=== PATIENT | female | born 1965 | race Caucasian/White ===

== ENCOUNTER 2017-09-14 16:58 | Emergency (ER) | payer MEDICARE, OTHER ==
[~2017-09-14] VITALS: Ht 160 cm; Wt 56.8 kg
[~2017-09-14 16:58] MED LIST: NEOM1OIN8 TOP
[2017-09-14 17:22] VITALS: BP 155/100
== END 2017-09-14 18:06 ==
LOC: ER 16:59
DX: Z02.89 Encounter for other administrative examinations (principal); F12.10 Cannabis abuse, uncomplicated; Z88.5 Allergy status to narcotic agent; Z59.0 Homelessness
CPT/HCPCS: 99284

== ENCOUNTER 2018-02-17 23:01 | Emergency (ER) | payer MEDICARE, OTHER ==
[~2018-02-17] VITALS: Ht 162.6 cm; Wt 68.8 kg
[2018-02-18 02:11] VITALS: BP 136/88
== END 2018-02-18 02:13 | disposition home or self-care (01) ==
LOC: ER 23:02
DX: M54.2 Cervicalgia (principal); R42 Dizziness and giddiness; R47.81 Slurred speech; F12.90 Cannabis use, unspecified, uncomplicated; Z90.89 Acquired absence of other organs; Z88.5 Allergy status to narcotic agent; Z79.899 Other long term (current) drug therapy; Z59.0 Homelessness
CPT/HCPCS: 99281

== ENCOUNTER 2020-07-26 09:00 | Emergency (ER) | payer MEDICARE ==
[~2020-07-26] VITALS: Ht 162.6 cm; Wt 62.1 kg
[2020-07-26] MEDS ORDERED: sulfamethoxazole/trimethoprim DS (800/160mg) tablet PO ONE (12:00)
[2020-07-26] MEDS ORDERED: SULF1TAB49 PO (12:20)
[2020-07-26 12:34] VITALS: BP 116/81
== END 2020-07-26 12:30 | disposition home or self-care (01) ==
LOC: ER 09:01
DX: S01.01XD Laceration without foreign body of scalp, subsequent encounter (principal); H66.92 Otitis media, unspecified, left ear; F31.9 Bipolar disorder, unspecified; F17.200 Nicotine dependence, unspecified, uncomplicated; F12.90 Cannabis use, unspecified, uncomplicated; Z48.02 Encounter for removal of sutures; Z90.89 Acquired absence of other organs; Z98.890 Other specified postprocedural states; Z59.0 Homelessness; Z88.5 Allergy status to narcotic agent; Z88.8 Allergy status to other drugs, medicaments and biological substances; Z79.2 Long term (current) use of antibiotics; X58.XXXD Exposure to other specified factors, subsequent encounter
CPT/HCPCS: 99283

== ENCOUNTER 2022-04-23 13:24 | Emergency (ER) | payer MEDICARE ==
[~2022-04-23] VITALS: Ht 162.6 cm; Wt 54.5 kg
[2022-04-23 13:29] VITALS: BP 139/100
[2022-04-23] MEDS ORDERED: amox tr/potassium clavulanate 875/125mg TAB PO ONE (13:50)
[2022-04-23] MEDS ORDERED: AMOX-580 PO (14:37)
== END 2022-04-23 14:49 | disposition home or self-care (01) ==
LOC: ER 13:25
DX: J02.9 Acute pharyngitis, unspecified (principal); F31.9 Bipolar disorder, unspecified; F12.90 Cannabis use, unspecified, uncomplicated; Z88.8 Allergy status to other drugs, medicaments and biological substances; Z88.5 Allergy status to narcotic agent; Z98.890 Other specified postprocedural states; Z59.00 Homelessness unspecified
CPT/HCPCS: 73590; 99283

== ENCOUNTER 2023-07-31 14:23 | Emergency (ER) | payer MEDICARE ==
[~2023-07-31] VITALS: Ht 162.6 cm; Wt 58.0 kg
[~2023-07-31 14:23] MED LIST changes: -NEOM1OIN8 TOP; +NICO-687 TOP
[2023-07-31 14:45] VITALS: TEMP 98.2
[2023-07-31 17:25] LABS: BASOPHILS # (AUTO) 0.1 X10'3 (0-0.2); BASOPHILS % (AUTO) 0.5 % (0-1); EOSINOPHILS % (AUTO) 0.1 % (0-6); HEMATOCRIT 31.9 % (35.0-45.0); HEMOGLOBIN 10.7 g/dl (12.0-16.0); LYMPHOCYTES # (AUTO) 2.8 X10'3 (1.1-4.8); MEAN CORPUSCULAR HEMOGLOBIN 30.6 PG (27.0-31.0); MEAN CORPUSCULAR HGB CONC 33.5 g/dL (33.0-36.5); MEAN CORPUSCULAR VOLUME 91.6 FL (78-98); MEAN PLATELET VOLUME 8.8 FL (7.4-10.4); MONOCYTES # (AUTO) 0.9 X10'3 (0-0.9); MONOCYTES % (AUTO) 5.6 % (2-12); NEUTROPHILS # (AUTO) 12.5 X10'3 (1.8-7.7); NEUTROPHILS % (AUTO) 76.8 % (42-75); PLATELET COUNT 429 X10'3 (140-440); RED BLOOD COUNT 3.49 X10'6 (4.20-5.60); RED CELL DISTRIBUTION WIDTH 14.4 % (11.5-14.5); WHITE BLOOD COUNT 16.4 X10'3 (4.5-11.0)
[2023-07-31 17:28] LABS: ALBUMIN 2.8 G/DL (3.4-5.0); ANION GAP 8 (8-16); BLOOD UREA NITROGEN 9 MG/DL (7-18); BUN/CREATININE RATIO 12.3 (10.0-20.0); CALCIUM 8.5 MG/DL (8.5-10.1); CHLORIDE 98 MMOL/L (99-107); CREATININE 0.73 MG/DL (0.40-0.90); GLUCOSE 96 MG/DL (70-104); POTASSIUM 3.6 MMOL/L (3.5-5.1); SODIUM 134 MMOL/L (135-145); TOTAL CARBON DIOXIDE 28.4 MMOL/L (24-32); eCRCL 73 ML/MIN; eGFR 82 ML/MIN
[2023-07-31] MEDS ORDERED: AZIT-21 PO (18:08)
[2023-07-31 18:38] VITALS: BP 104/67; PULSE 92; RESP 16; O2SAT 100
== END 2023-07-31 18:44 | disposition home or self-care (01) ==
LOC: ER 14:24
DX: J20.9 Acute bronchitis, unspecified (principal); R07.81 Pleurodynia; F32.A Depression, unspecified; F12.90 Cannabis use, unspecified, uncomplicated; Z98.890 Other specified postprocedural states; Z59.00 Homelessness unspecified; Z88.5 Allergy status to narcotic agent; Z88.8 Allergy status to other drugs, medicaments and biological substances; Z79.899 Other long term (current) drug therapy
CPT/HCPCS: 36415; 71045; 80048; 85025; 93005; 99285

== ENCOUNTER 2025-01-23 06:26 | Inpatient (IN) | payer OTHER, MEDICARE, MEDICAID ==
[~2025-01-23] VITALS: Ht 162.6 cm; Wt 54.5 kg
--- NOTE | 2025-01-23 07:31 | Physician Documentation ---
History of Present Illness ~ Chief Complaint: Vomiting w/diarrhea Stated Complaint: VOMITING Time Seen by MD: 07:01 Primary Medical Doctor: ELVA GRAF [facility] This is a 59-year-old female who came in for evaluation of uncontrollable nausea, vomiting, diarrhea, and uncontrollable urination with a purulent valerio urine for the last three days. No obvious trigger provocation. No palliating or aggravating factors. She states that she had to wash her clothes multiple times down by the canal because she kept swelling her closed. This never happened in the past. Did not attempt to treat it. States that she has not been able to keep down any food or fluids since yesterday. Also reports right-sided chest pain that she describes as I have a ball over here. No palliating or aggravating factors for the chest pain. Did not attempt to treat it. Denies any concern for tobacco, alcohol or illicit substances use Medication Reconciliation Allergies: Coded Allergies: codeine (Unverified Allergy, Severe, 01/23/25) diphenhydramine HCl (Unverified Allergy, Unknown, 01/23/25) Scheduled Nicotine 21 MG Patch* (Habitrol 21 MG Patch*), 1 PATCH TOP DAILY Past Medical History Past Medical History: Vertigo, Bipolar, Depression Past Surgical History: , tonsillectomy Patient History: FH: heart disease Alcohol Use: None Drug Use: marijuana Lives In: Homeless Review of Systems ROS 10 point review of systems was performed and unless noted above in HPI is negative for acute process/complaint. Physical Exam Vital Signs: Temperature: 97.2, Source: Temporal, Heart Rate: 98, Respiratory Rate: 19, BP: 124/, Pulse Oximetry: 98, Weight: 54.500 Physical Exam GENERAL: Awake, alert, oriented, GCS 15, no apparent distress, non-toxic appearing, answers questions, follows commands appropriately. Examined in bed 11. After patient had undergone decontamination shower. Initially presented completely covered in feces and urine. HEENT: Atraumatic, normocephalic, pupils equal, extraocular muscles intact, sclerae anicteric, mucus membranes moist, oropharynx is clear, no stridor. NECK: supple, full active range of motion, trachea midline, no thyromegaly, no lymphadenopathy, no JVD. CARDIOVASCULAR: regular rate/rhythm, no murmurs/gallops/rubs, Pulses are 2+ in a ll extremities and symmetric. Capillary refill less than 2 seconds. PULMONARY: Nonlabored, good air movement ,no respiratory distress, speaking in full sentences, clear to auscultation bilaterally, no wheezing, no ronchi, no rales, no accessory muscle use. GASTROINTESTINAL: Soft, non-tender, non-distended, normal active bowel sounds, no organomegaly, no pulsatile masses, no CVA tenderness. NEUROLOGIC: Lucid with normal mental status. Normal facial symmetry. Moves all extremities symmetrically and with purpose. No truncal ataxia. Speech is fluid without evidence of dysarthria or aphasia, no focal deficits appreciated. MUSCULOSKELETAL: There is full range of motion of all extremities. There is no joint pain or joint swelling or joint erythema. There is no muscle pain or tenderness or swelling. EXTREMITIES: warm, well-perfused, no cyanosis, no clubbing, no edema, no acute deformities. Skin: warm, dry, no rashes or lesions, no jaundice, no petechiae orpurpura. No ecchymosis. PSYCHIATRIC: Normal affect, normal insight, normal concentration. Focused exam: [] No guarding or rebound Progress Results/Orders Results/Orders Orders - BARRY ANG DO Culture Blood (01/23/25 07:27) Chest,Single View (01/23/25 07:27) Monitor (01/23/25 07:27) Saline Lock (01/23/25 07:27) Ct Abdomen Pelvis (01/23/25 10:56) Normal Saline (01/23/25 11:00) Rocephin 2 Gm In 50ml D5w (01/23/25 11:00) Metronidazole-Flagyl 500mg/Ns (Flagyl 50 (01/23/25 10:56) Completed Orders - BARRY ANG DO Electrocardiogram (01/23/25 07:27) Cbc/Diff (01/23/25 07:27) ESR (01/23/25 07:27) Lipase (01/23/25 07:27) C-Reactive Protein (01/23/25 07:27) PHOS (01/23/25 07:27) Chest,Single View (01/23/25 07:27) MG (01/23/25 07:27) Normal Saline 1000ml (0.9% Sodium Chlori (8/11/25 07:30) CMP (01/23/25 07:27) Hs Troponin I W Calculations (01/23/25 07:27) Hs Troponin I W Calculations (01/23/25 09:27) Lacticsepsis (01/23/25 07:27) Ondansetron Inj. (Zofran 4mg/2ml Vial) (01/23/25 07:30) Magnesium Sulf-Water 2g/50ml (Magnesium (01/23/25 09:00) Lactic,2hr (01/23/25 09:05) Ua W/Microscopic, Cult If Ind (01/23/25 10:00) Medications Received in ER Medications (Trade) Dose Ordered Sig/Denzel Route PRN Reason Start Time Stop Time Status Last Admin Dose Admin (0.9% sodium chloride (NS) 1000ml IV soln) 1,000 ml ONCE ONCE IVB 01/23/25 07:30 01/23/25 07:31 DC 01/23/25 07:38 1,000 ML (Zofran 4mg/2ml vial) 8 mg ONCE ONCE IV 01/23/25 07:30 01/23/25 07:31 DC 01/23/25 07:38 8 MG Magnesium Sulfate 50 ml @ 100 mls/hr ONCE ONCE IV 01/23/25 09:00 01/23/25 09:29 DC 01/23/25 10:36 100 MLS/HR Vital Signs 01/23/25 01/23/25 01/23/25 06:43 07:45 07:48 Temp 97.2 97.8 Pulse 98 83 Resp 19 14 14 B/P (MAP) 124/ 115/85 (95) Pulse Ox 98 96 Laboratory Tests Test 01/23/25 07:34 01/23/25 09:41 01/23/25 10:00 White Blood Count 15.0 H Red Blood Count 4.48 Hemoglobin 14.2 Hematocrit 42.2 Mean Corpuscular Volume 94.1 Mean Corpuscular Hemoglobin 31.8 H Mean Corpuscular Hemoglobin Concent 33.8 Red Cell Distribution Width 13.3 Platelet Count 452 H Mean Platelet Volume 9.0 Neutrophils (%) (Auto) 74.4 Lymphocytes (%) (Auto) 19.4 L Monocytes (%) (Auto) 5.7 Eosinophils (%) (Auto) 0.1 Basophils (%) (Auto) 0.4 Neutrophils # (Auto) 11.1 H Lymphocytes # (Auto) 2.9 Monocytes # (Auto) 0.8 Eosinophils # (Auto) 0.0 Basophils # (Auto) 0.1 CBC Comment Erythrocyte Sedimentation Rate 49 H Sodium Level 133 L Potassium Level 3.3 L Chloride Level 97 L Carbon Dioxide Level 22.6 L Anion Gap 13 Blood Urea Nitrogen 31 H Creatinine 2.00 H Estimated GFR/1.73 m2 26 BUN/Creatinine Ratio 15.5 Glucose Level 115 H Lactic Acid Level 2.2 H 2.5 H Calcium Level 8.7 Phosphorus Level 5.2 H Magnesium Level 1.7 Total Bilirubin 0.3 Aspartate Amino Transf (AST/SGOT) 11 Alanine Aminotransferase (ALT/SGPT) 19 Alkaline Phosphatase 121 H Troponin I High Sensitivity 4 5 C-Reactive Protein 5.14 H Total Protein 9.0 H Albumin 3.7 Globulin 5.3 H Albumin/Globulin Ratio 0.7 L Lipase 15 L Chemistry Comments Troponin I High Sens Percent Delta 25 Troponin I Hi Sens Absolute Change 1 Urine Specimen Description Ba cath Urine Color Yellow Urine Clarity Slightly cloudy Urine pH 6.0 Urine Specific [place] >=1.030 Urine Protein 30 H Urine Glucose (UA) Negative Urine Ketones Negative Urine Occult Blood Trace-intact Urine Nitrite Negative Urine Bilirubin Negative Urine Urobilinogen 0.2 Urine Leukocyte Esterase Negative Urine RBC 3-10 Urine WBC 0-4 Urine Squamous Epithelial Cells Many Urine Transitional Epithelial Cells Few Urine Renal Cells Few Urine Bacteria 1+ Urine Hyaline Casts 5-10 Urine Fine Granular Casts 0-3 Urine Culture Indicated Not ind Volume Urine Centrifuged 10 ml Urine Comment Microbiology Date/Time Source Procedure Growth Status 01/23/25 07:34 Blood Arm Right Blood Culture - Preliminary NEGATIVE (LESS THAN 24 HOURS) Resulted EKG/XRAY/CT/US/VASC/MRI EKG : Additional Comment EKG was obtained and interpreted by myself shows sinus rhythm of 86, normal NC interval, narrow QRS, prolonged QT, normal axis, no STEMI. ST depressions in the inferior leads. Medical Decision Making Findings Facility Status: ED Holds, [facility] process The plan was discussed with the patient, who demonstrates clear understanding of the plan and is in agreement with the plan unless otherwise noted in the chart. All questions have been answered, all concerns were addressed unless otherwise documented. I was available throughout their ED stay for frequent reassessment and questions. Differential Diagnoses (considered and possible or likely): [Viral gastroenteritis, bacterial gastroenteritis, bacterial colitis, diverticulitis less likely, urinary tract infection, pyelitis, pyelonephritis, sepsis, dehydration, electrolyte derangement, with a respect to chest pain Differential diagnosis considered includes chest wall pain, pleurisy, pneumonia, pulmonary embolus, GERD, esophagitis, gastritis, anxiety, stress reaction, costochondritis, acute coronary syndrome, aortic dissection, pericarditis, myocarditis, or pneumothorax.] ??Differential Diagnoses (considered and unlikely, not requiring evaluation currently): [Unlikely acute intra-abdominal process requiring surgical intervention] MDM Data Please see [facility] for the following: Independent Historians and external Records Review. Historian: [Patient] Independent Historians: ?[Record review] Medication Management: [Reviewed medication list] Social History and determinants: [Reviewed] Please see the body of the note for the following: Any independent interpretations of ECG, imaging studies. All vitals signs/haemodynamics, ordered tests were independently reviewed and interpreted by myself. Nursing triage complaint and vitals reviewed, additional nursing notes were reviewed as available and I agree unless otherwise noted or documented in contradiction in the chart Vital Signs: Independently reviewed Labs: Independently interpreted Imaging: Independently interpreted Old Medical Records: Independently reviewed, see [facility] for relevant summary and information Pulse Oximetry: [93% ] interpreted as [normal on room air] by me [Hot Mill Operator: [Regular Rate, Regular rhythm, no ectopy, NSR] reviewed and interpreted by me] Additionally notably showing: [Hemodynamics reviewed. The patient is not febrile but tachycardic. Responded well to fluids. Laboratory studies showed leukocytosis, elevated ESR, elevated CRP, normal lipase, normal troponin, elevated lactic acid that did not improve despite of fluid administration. UA is concentrated, nondiagnostic for UTI. Chest x-ray shows no acute disease] Tests considered but not ordered include: [Initially did not consider advanced imaging of the abdomen, however given rising lactic acid despite of fluid admin istration we will obtain imaging] Social Determinants of Health Impact: Patient was evaluated in [facility] [employer] [place] to healthcare due to below par ratio of patient to medical providers. [] Comorbid Conditions Impacting Present Evaluation and Care/Treatment: [None reported by the patient] Management Discussions with other Healthcare Providers: [Hospitalist regarding admission] Treatment and Disposition Medication Management (Given or considered): [Fluids, magnesium for prolonged QT]. See EMR for details Consideration for Hospitalization/Escalation/Deescalation of Care: Admission for observation has been considered, and appears to be necessary given the patient's presentation, need for rectal tube, continues diarrhea, lactic acidosis and meeting sepsis criteria. However, there is no clear infectious etiology at this time therefore this is sepsis of unknown etiology. ?ED Course:?[No significant clinical improvement] ?Shared decision making:?[] Code status:?FULL Please see the full Electronic Medical Record for full details of nursing documentation, medications list, other records of complete past medical history and conditions, vital signs, laboratory studies, and any radiologic study interpretations by radiologists. Portions of this note were completed using [employer] dictation software and as a result there may exist minor errors in spelling. I have reviewed elements of past family and social history and agree as included in note. Departure Disposition: 09 ADMITTED INPATIENT Admitted to Inpatient Unit: to hospitalist Impression: Primary Impression: Sepsis, unspecified organism Additional Impressions: Hyponatremia Hypokalemia Diarrhea Acute kidney injury Lactic acidosis Condition: Fair Referrals: NO PRIMARY CARE PROVIDER (PCP) Signature Scribe Signature: No scribe Attestation: This note accurately reflects clinical decisions, work performed by myself, DO ASHIA Rush NICHOLAS M DO Jan 23, 2025 07:31
[2025-01-23] MEDS: normal saline 1000ML IV soln IVB ONE ×2 (07:38→12:21)
[2025-01-23] MEDS: ondansetron/PF 4mg/2ml inj IV ONE (07:38)
[2025-01-23 07:46] LABS: MEAN PLATELET VOLUME 9.0 FL (7.4-10.4); RED CELL DISTRIBUTION WIDTH 13.3 % (11.5-14.5)
--- NOTE | 2025-01-23 07:48 | ELECTROCARDIOGRAPH REPORT ---
[facility] Test Date: 2025-01-23 Test Time: 07:46:52 Pat Name: MEERA SIDDIQI Department: [facility]- Patient ID: [facility]-[id number] Room: Gender: F Engagement Mgr: : 1965 Requested By: BARRY ANG Order Number: [id number] Reading MD: Measurements Intervals Foley Rate: 86 P: 82 GA: 120 QRS: 80 QRSD: 85 T: -87 QT: 455 QTc: 545 Interpretive Statements Sinus rhythm Abnormal R-wave progression, early transition Borderline repolarization abnormality Prolonged QT interval Baseline wander in lead(s) III,aVL,aVF Please click the below link to view image of tracing.
[2025-01-23 08:14] LABS: CREATININE 2.00 MG/DL (0.40-0.90); PHOSPHORUS 5.2 MG/DL (2.3-4.5); TOTAL CARBON DIOXIDE 22.6 MMOL/L (24-32); eCRCL 26 ML/MIN; eGFR 26 ML/MIN
--- NOTE | 2025-01-23 08:20 | RADIOLOGY REPORT ---
CHEST RADIOGRAPH Indication: Right-sided chest pain Technique: Single frontal view of the chest was obtained Comparison: DI CHEST,SINGLE VIEW on DOS: 07/31/23 FINDINGS: Lines and Tubes: None Lungs: No focal consolidation. Pleura: No effusion. No pneumothorax. Cardiomediastinal contours: Unremarkable Bones: No acute osseous abnormality. IMPRESSION: 1. No acute cardiopulmonary disease.
[2025-01-23 10:16] LABS: LEUKOCYTE ESTERASE ,URINE NEGATIVE (Neg); NITRITES, URINE NEGATIVE (Neg); OCCULT BLOOD,URINE TRACE-INTACT (Neg)
[2025-01-23 10:19] LABS: UA COLLECTION TYPE FOLEY CATH
[2025-01-23 10:22] LABS: FINE GRANULAR CAST 0-3 /LPF (NEGATIVE)
[2025-01-23 10:23] LABS: RENAL CELLS, URINE FEW /HPF; SQUAMOUS EPITHELIAL CELL,UR MANY /LPF (FEW)
[2025-01-23] MEDS: magnesium sulf-water 2g/50mL 50 ML IV ONE (10:36)
[2025-01-23] MEDS ORDERED: CefTRIAXone 2gm/NS 100ml IVPB 50 ML IV ONE (11:00)
[2025-01-23] MEDS ORDERED: iohexol 300mg/ml 100ml inj. ONE (11:33)
[2025-01-23] MEDS ORDERED: magnesium sulf-water 2g/50mL 50 ML IV PRN (12:10)
[2025-01-23] MEDS ORDERED: potassium Cl 40MEQ/1/2NS 520ml 520 ML IV PRN (12:10)
[2025-01-23] MEDS ORDERED: ipratropium/albuterol 3ml nebule NEB PRN (12:10)
[2025-01-23] MEDS ORDERED: HYDROmorphone inj. 0.5 MG/0.5 ML DISP.SYRIN IV PRN (12:10)
[2025-01-23] MEDS ORDERED: magnesium hydroxide 30ml (MOM) UD suspension PO PRN (12:10)
[2025-01-23] MEDS ORDERED: magnesium sulf-water 4G/100mL 100 ML IV PRN (12:10)
[2025-01-23] MEDS ORDERED: potassium Cl 20 mEq SR tablet PO PRN (12:10)
[2025-01-23] MEDS ORDERED: mag hydrox/Alum hydrox/simeth 30ml oral suspension PO PRN (12:10)
[2025-01-23] MEDS ORDERED: HYDROmorphone/PF 0.2 MG/ML SYRINGE IV PRN (12:10)
--- NOTE | 2025-01-23 12:10 | RADIOLOGY REPORT ---
CT of the abdomen and pelvis with contrast INDICATION: profuse diarrhea, abd pain Comparison: 07/20/2023 TECHNIQUE: Following IV administration 100 mL omnipaque 300 Serial axial images were performed throug h the abdomen and pelvis and then reformatted in the sagittal and coronal plane. All CT scans at this medical facility are performed using dose modulation techniques as appropriate to a performed exam i ncluding the following: Automated exposure control was utilized; adjustment of the MA and/or KvP acco rding to patient size; and use of iterative reconstruction technique. FINDINGS: Small hiatal hernia of the GE junction. The lung bases are clear. Liver and spleen are normal in size without focal mass. No renal masses, stones or hydronephrosis. No masses or enlargement of the adrenal glands or pancreas. No biliary dilatation. No gallstones. There is distention of small and Appendix not clearly seen.. No free fluid. Within the pelvis, bladder is smooth walled without stones. Ba catheter in the bladder. No abnorma l masses or fluid collections. IMPRESSION: 1. There is distention of small-bowel loops and of the ascending and colon. I favor this representing an ileus although enteritis can not be excluded since there is some thickening of the proximal small bowel jones. 2. Small hiatal hernia as on previous exam. Computed Tomographic Radiation Dosimetry Report: Total CTDI vol = 7.6 mGy Total DLP = 305 mGy-cm Low dose protocols were performed.
[2025-01-23] MEDS: metroNIDAZOLE-Flagyl 500mg/NS 100 ML IV STA (12:21)
[2025-01-23 13:51] VITALS: PULSE 84; RESP 16; O2SAT 99
[2025-01-23] MEDS: CefTRIAXone 2gm/D5W 50ml IV ONE (14:07)
[2025-01-23 15:27] VITALS: RESP 18; O2SAT 98
[2025-01-23 15:31] VITALS: BP 98/68; PULSE 71; RESP 18; TEMP 97.4; O2SAT 98
[2025-01-23] MEDS: metroNIDAZOLE-Flagyl 500mg/NS 100 ML IV SCH (16:57)
[2025-01-23 18:00] VITALS: BP 116/64; PULSE 74; RESP 16; TEMP 97.7; O2SAT 99
[2025-01-23] MEDS ORDERED: POTASSIUM BICARB 20meq eff tab 20 MEQ TABLET.EFF PO PRN (18:25)
[2025-01-23] MEDS: normal saline 1000ml 1,000 ML IV SCH (19:40)
[2025-01-23] MEDS: potassium Cl 20 mEq SR tablet PO PRN (19:40)
[2025-01-23] MEDS: enoxaparin 40mg/0.4ml syringe SQ SCH (19:41)
[2025-01-23] MEDS: ciprofloxacin/D5W 200mg/100mL 100 ML IV SCH (19:41)
[2025-01-23] MEDS: K and/or MAG REPLACEMENT MC SCH (19:59)
[2025-01-23 20:00] VITALS: RESP 18; O2SAT 98
--- NOTE | 2025-01-23 20:06 | HISTORY AND PHYSICAL ---
History & Physical Providers to CC ~ History of Present Illness Reason for Admit\Complaint: Gastroenteritis, intractable diarrhea History of Present Illness This is a 59-year-old female who presents to the ED with intractable nausea and vomiting and diarrhea x3 days the patient also has had purulent valerio urine for this timeframe her the patient also has not been able to either drink any fluids. The patient is does endorse chills as well. The patient denies abdominal pain the patient also complained of right sided chest discomfort with a ball in her chest chest x-ray was obtained which was unremarkable. A CT scan of the abdomen and pelvis demonstrated an ileus. Initially rectal tube was placed in the ED however the patient can not tolerate this and she self removed the rectal tube. The patient has a normal baseline creatinine and her creatinine today is 2.0 that is the patient has a acute kidney injury IV fluids are being administered. I started the patient on Cipro IV and Flagyl IV antibiotic coverage of the possible bacterial gastroenteritis Allergies: Coded Allergies: codeine (Unverified Allergy, Severe, 01/23/25) diphenhydramine HCl (Unverified Allergy, Unknown, 01/23/25) Home Medications Home Medications Active Habitrol 21 MG Patch* (Nicotine) 1 Each Patch.td24 1 Patch TOP DAILY 28 Days do not smoke while on the nicotine patch this could markedly elevated your blood pressure and you could have a stroke. Past Medical History Past Medical History Depression/anxiety/bipolar disorder Past Surgical History Surgical History Comment Tonsillectomy Family History Family History: CVA MOTHER FH: brain cancer FATHER FH: diabetes mellitus Grandmother FH: heart disease FH: myocardial infarction Grandmother Past Social History Social History Comment Smokes a pack of cigarettes a day, rare alcohol intake, smokes methamphetamines frequently last usage was three days ago. DNR code status ROS ROS Except for positives in the HPI the rest of the 14 point review systems is negative Exam Vitals: Vital Signs Date Time Temp Pulse Resp B/P (MAP) Pulse Ox O2 Delivery O2 Flow Rate FiO2 01/23/25 15:31 97.4 71 18 98/68 (78) 98 Room Air 01/23/25 14:10 0 01/23/25 13:51 21 General: Gen. No acute distress alert and oriented 4 Lungs clear to ascultation bilaterally, no wheezes rales or rhonchi appreciated Heart normal sinus rhythm no murmurs rubs or clicks noted Abdomen soft nontender bowel sounds are normoactive Lower extremities no clubbing cyanosis, nor edema appreciated bilaterally Diagnostic Data Last Recorded Lab Results: 01/23/25 0734 01/23/25 0734 Advance Care Planning Advanced Care plannin - 30 Minutes Problems: (1) Acute kidney injury Status: Acute Additional Plan # gastroenteritis- Stool studies/stool culture Stool for C diff # BRENNA-likely secondary vasomotor nephropathy IV fluids resuscitation Daily CMP to monitor # tobacco use disorder- Offered the patient a nicotine patch which she declined I will discuss smoking cessation with the patient tomorrow since the patient is rather ill today. # methamphetamine inhalation use disorder Substance use navigator Rossy Mukherjee consult is ordered # sepsis-likely secondary to gastroenteritis Blood cultures has been obtained IV Flagyl IV Cipro # DVT prophylaxis SCDs SQ Lovenox I spent a total of 12 minutes on reviewing various resuscitative measures/ ACP with the patient at the time of admission. The patient has decided on a DNR code status. Date of Service: Jan 23, 2025 Billing Provider: CHRISTIE MCKEON DO Common Visit Codes: [id number] INP/OBS CARE (HIGH) Secondary Visit Codes: [id number] CARE PLAN 30 MINUTES CHRISTIE MCKEON DO Jan 23, 2025 20:06
[2025-01-23 22:00] VITALS: BP 122/72; PULSE 79; RESP 15; TEMP 97.7; O2SAT 97
[2025-01-23] MEDS: ondansetron/PF 4mg/2ml inj IV PRN (22:07)
[2025-01-24] VITALS (7 sets, daily range): BP systolic 129–145; BP diastolic 71–85; PULSE 73–87; RESP 14–20; TEMP 97.9–98.6; O2SAT 92–100
[2025-01-24 04:35] LABS: MEAN PLATELET VOLUME 9.3 FL (7.4-10.4); RED CELL DISTRIBUTION WIDTH 13.5 % (11.5-14.5)
[2025-01-24 05:03] LABS: CREATININE 1.14 MG/DL (0.40-0.90); TOTAL CARBON DIOXIDE 22.2 MMOL/L (24-32); eCRCL 46 ML/MIN; eGFR 49 ML/MIN
[2025-01-24 13:50] LABS: C DIFF ANTIGEN POSITIVE (NEGATIVE); C DIFF SPECIMEN=DIARRHEA? ACCEPTABLE; C DIFFICILE TOXINS A&B POSITIVE (Neg)
--- NOTE | 2025-01-24 17:37 | PROGRESS NOTE ---
Daily Progress Note Providers to CC ~ Antibiotic Timeout Antibiotic Ordered?: Yes Subjective Patient continues to have diarrhea her stool was positive for C difficile - IV Cipro and IV Flagyl were discontinued. The patient initially did not want a nicotine patch however she just requested one Objective Vital Signs Date Time Temp Pulse Resp B/P (MAP) Pulse Ox O2 Delivery O2 Flow Rate FiO2 01/24/25 10:00 98.6 78 19 145/85 (105) 97 Room Air 01/23/25 14:10 0 01/23/25 13:51 21 Result Diagram: 01/24/2540901/24/25409 Gen. No acute distress alert and oriented 4 Lungs clear to ascultation bilaterally, no wheezes rales or rhonchi appreciated Heart normal sinus rhythm no murmurs rubs or clicks noted Abdomen soft mild generalized tenderness bowel sounds are normoactive Lower extremities no clubbing cyanosis, nor edema appreciated bilaterally Problem\Assessment\Plan Problems/Diagnosis: (1) Acute kidney injury # gastroenteritis- Stool positive for Clostridium difficile Oral vancomycin DC IV antibiotics including metronidazole and ciprofloxacin # BRENNA-likely secondary vasomotor nephropathy IV fluids resuscitation Daily CMP to monitor Improving # tobacco use disorder- I spent 12 minutes discussing smoking cessation with the patient on 01/24/2025 including the risk of continuing smoke: Lung cancer, stroke, heart attack, poor wound healing, increased in facial wrinkling, The expense of smoking cigarettes The patient has accepted a 21 mg nicotine patch. # methamphetamine inhalation use disorder Substance use navigator Rossy Mukherjee consult is ordered # sepsis-likely secondary to C difficile enterocolitis Blood cultures are negative x1 day Continue IV fluid resuscitation # DVT prophylaxis SCDs SQ Lovenox I spent a total of 12 minutes on reviewing various resuscitative measures/ ACP with the patient at the time of admission. The patient has decided on a DNR code status. Date of Service: Jan 24, 2025 Billing Provider: CHRISTIE MCKEON DO Common Visit Codes: [id number] INP/OBS CARE(HIGH) Secondary Visit Codes: [id number] CHNG SMOKING >10MIN CHRISTIE MCKEON DO Jan 24, 2025 17:37
[2025-01-24] MEDS: nicotine 21mg patch - 24 hr TD ONE (17:44)
[2025-01-24] MEDS: calcium carbonate 500mg chew tablet PO SCH (17:44)
[2025-01-24] MEDS ORDERED: enoxaparin 30mg/0.3ml syringe SQ SCH (19:41)
[2025-01-24] MEDS: vancomycin 125 MG/5 ML UD oral SOLN.RECON 5mL oral syringe (FIRVANQ) PO SCH (19:45)
[2025-01-24] MEDS: enoxaparin 30mg/0.3ml syringe SQ SCH (19:46)
[2025-01-25] VITALS (8 sets, daily range): BP systolic 119–144; BP diastolic 70–86; PULSE 67–97; RESP 14–19; TEMP 97.6–98.1; O2SAT 97–100
[2025-01-25 04:35] LABS: MEAN PLATELET VOLUME 8.9 FL (7.4-10.4); RED CELL DISTRIBUTION WIDTH 13.6 % (11.5-14.5)
[2025-01-25 04:58] LABS: CREATININE 0.74 MG/DL (0.40-0.90); TOTAL CARBON DIOXIDE 22.8 MMOL/L (24-32); eCRCL 70 ML/MIN; eGFR 80 ML/MIN
[2025-01-25] MEDS: pantoprazole 40mg Tablet.DR PO SCH (07:59)
[2025-01-25] MEDS: nicotine 21mg patch - 24 hr TD SCH (07:59)
--- NOTE | 2025-01-25 20:21 | PROGRESS NOTE ---
Daily Progress Note Providers to CC No new complaint today, resting comfortably in the bed ~ Central Line/PICC still needed: No Ba-Non Protocol Ba Indications Met/Not Met: F/C Indications Not Met Antibiotic Timeout Antibiotic Ordered?: Yes MRSA Education MRSA Education Provided to pt: Yes Subjective As above Objective Vital Signs Date Time Temp Pulse Resp B/P (MAP) Pulse Ox O2 Delivery O2 Flow Rate FiO2 01/25/25 18:00 97.6 97 19 137/75 (95) 97 Room Air 01/25/25 11:53 0 21 Vital signs, stable ,afebrile. Pulse Oximetry reflects adequate oxygenation. General: well developed, well nourished. Awake , alert, and oriented x4, resting comfortably in the bed, in no acute distress . Skin: Warm, dry, no pallor, no rash or petechiae. HEENT: Atraumatic, normocephalic, EOMI, anicteric sclera B; pink conjunctiva; PERRLA, normal oropharynx, moist oral and nasal mucosa. Tympanic membrane , nose , throat clear. Neck: Trachea midline. Supple, full range of motion, no JVD, bruit , hepatojugular reflex , lymphadenopathy or masses, or other lesions Cardiac: Regular rhythm, regular rate no murmurs, rubs, or gallops. Normal S1 and S2, no S3 noticed. PMI is normal. Respiratory: Equal breath sounds bilaterally, no tachypnea; lungs clear to auscultation bilaterally, no wheezing ,rub or rales, or crackles. Chest wall is symmetric and without deformity. No signs of trauma. Chest wall is nontender. No signs of respiratory distress. Resonance is normal upon percussion bilaterally. Gastrointestinal: Abdomen symmetric, non-distended, soft, non-tender, normal bowel sounds x4 quadrant, normoactive, no hepatosplenomegaly , no masses , no bruit, no flank pain bilaterally. No voluntary guarding, rebound, or rigidity. No tenderness to percussion. No pulsatile masses. Equal femoral pulses. No Perez's sign or McBurney point tenderness. Back; no CVA tenderness bilaterally, no deformities. Neck and back are without deformity as well. No tenderness noted on palpation of the spinous processes. Spinous processes are midline. Cervical, thoracic, and lumbar paraspinal muscles are not tender and are without spasm. Musculoskeletal: Extremities, normal range of motion, non-tender, muscle strength 5/5 x 4. Negative Homans signs bilaterally on lower extremity. Distal pulses full symmetrical, no clubbing, cyanosis , edema. Neurological: Speech is clear, alert, and oriented x 4. No motor or sensory deficit, deep tendon reflexes normal, cerebellar intact. Cranial nerves II-XII intact. Psych: Alert and or appropriate, normal affect. Vascular: Good distal pulses, which are equal x4; capillary refill less than 2 seconds. Lymphatic, no lymphadenopathy. Result Diagram: 01/25/2541601/25/25416 Problem\Assessment\Plan Problems/Diagnosis: (1) Acute kidney injury # gastroenteritis- Stool positive for Clostridium difficile Oral vancomycin DC IV antibiotics including metronidazole and ciprofloxacin # BRENNA-likely secondary vasomotor nephropathy IV fluids resuscitation Daily CMP to monitor Improving # tobacco use disorder- I spent 12 minutes discussing smoking cessation with the patient on 01/24/2025 including the risk of continuing smoke: Lung cancer, stroke, heart attack, poor wound healing, increased in facial wrinkling, The expense of smoking cigarettes The patient has accepted a 21 mg nicotine patch. # methamphetamine inhalation use disorder Substance use navigator Rossy Mukherjee consult is ordered # sepsis-likely secondary to C difficile enterocolitis Blood cultures are negative x1 day Continue IV fluid resuscitation # DVT prophylaxis SCDs SQ Lovenox I spent a total of 12 minutes on reviewing various resuscitative measures/ ACP with the patient at the time of admission. The patient has decided on a DNR code status. Date of Service: Jan 25, 2025 Billing Provider: FRANCES CARTER MD Common Visit Codes: [id number] INP/OBS CARE(HIGH) FRANCES CARTER MD Jan 25, 2025 20:21
[2025-01-26] VITALS (8 sets, daily range): BP systolic 116–148; BP diastolic 74–94; PULSE 64–73; RESP 12–18; TEMP 96.9–98; O2SAT 97–99
[2025-01-26 05:21] LABS: MEAN PLATELET VOLUME 8.7 FL (7.4-10.4); RED CELL DISTRIBUTION WIDTH 13.5 % (11.5-14.5)
[2025-01-26 06:22] LABS: CREATININE 0.55 MG/DL (0.40-0.90); TOTAL CARBON DIOXIDE 24.4 MMOL/L (24-32); eCRCL 95 ML/MIN; eGFR > 90 ML/MIN
[2025-01-26 08:14] LABS: EOSINOPHILS % (MANUAL) 1.0 % (0-6); LYMPHOCYTES % (MANUAL) 65.0 % (21-51); MONOCYTES % (MANUAL) 11.0 % (2-12); NEUTROPHILS % (MANUAL) 23.0 % (42-75); PLATELET ESTIMATE NORMAL
[2025-01-26] MEDS: magnesium Cl slow-release 64mg tablet PO PRN ×2 (09:01→19:54)
[2025-01-26] MEDS ORDERED: potassium Cl 40MEQ/1/2NS 520ml 520 ML IV PRN (12:35)
[2025-01-26] MEDS ORDERED: magnesium sulf-water 2g/50mL 50 ML IV PRN (12:35)
[2025-01-26] MEDS ORDERED: magnesium sulf-water 4G/100mL 100 ML IV PRN (12:35)
[2025-01-26] MEDS ORDERED: potassium Cl 20 mEq SR tablet PO PRN (12:35)
[2025-01-26] MEDS: potassium Cl 20 mEq SR tablet PO PRN (12:53)
--- NOTE | 2025-01-26 17:22 | PROGRESS NOTE ---
Daily Progress Note Providers to CC Feels better today, less pain, good appetite ~ Central Line/PICC still needed: No Ba-Non Protocol Ba Indications Met/Not Met: F/C Indications Not Met Antibiotic Timeout Antibiotic Ordered?: Yes MRSA Education MRSA Education Provided to pt: Yes Subjective As above Objective Vital Signs Date Time Temp Pulse Resp B/P (MAP) Pulse Ox O2 Delivery O2 Flow Rate FiO2 01/26/25 10:00 98.0 65 16 145/93 (110) 99 Room Air 01/26/25 09:41 0 21 Vital signs, stable ,afebrile. Pulse Oximetry reflects adequate oxygenation. General: well developed, well nourished. Awake , alert, and oriented x4, resting comfortably in the bed, in no acute distress . Skin: Warm, dry, no pallor, no rash or petechiae. HEENT: Atraumatic, normocephalic, EOMI, anicteric sclera B; pink conjunctiva; PERRLA, normal oropharynx, moist oral and nasal mucosa. Tympanic membrane , nose , throat clear. Neck: Trachea midline. Supple, full range of motion, no JVD, bruit , hepatojugular reflex , lymphadenopathy or masses, or other lesions Cardiac: Regular rhythm, regular rate no murmurs, rubs, or gallops. Normal S1 and S2, no S3 noticed. PMI is normal. Respiratory: Equal breath sounds bilaterally, no tachypnea; lungs clear to auscultation bilaterally, no wheezing ,rub or rales, or crackles. Chest wall is symmetric and without deformity. No signs of trauma. Chest wall is nontender. No signs of respiratory distress. Resonance is normal upon percussion bilaterally. Gastrointestinal: Abdomen symmetric, non-distended, soft, non-tender, normal bowel sounds x4 quadrant, normoactive, no hepatosplenomegaly , no masses , no bruit, no flank pain bilaterally. No voluntary guarding, rebound, or rigidity. No tenderness to percussion. No pulsatile masses. Equal femoral pulses. No Perez's sign or McBurney point tenderness. Back; no CVA tenderness bilaterally, no deformities. Neck and back are without deformity as well. No tenderness noted on palpation of the spinous processes. Spinous processes are midline. Cervical, thoracic, and lumbar paraspinal muscles are not tender and are without spasm. Musculoskeletal: Extremities, normal range of motion, non-tender, muscle strength 5/5 x 4. Negative Homans signs bilaterally on lower extremity. Distal pulses full symmetrical, no clubbing, cyanosis , edema. Neurological: Speech is clear, alert, and oriented x 4. No motor or sensory deficit, deep tendon reflexes normal, cerebellar intact. Cranial nerves II-XII intact. Psych: Alert and or appropriate, normal affect. Vascular: Good distal pulses, which are equal x4; capillary refill less than 2 seconds. Lymphatic, no lymphadenopathy. Result Diagram: 01/26/25 0506 01/26/25 0506 Problem\Assessment\Plan Problems/Diagnosis: (1) Acute kidney injury Assessment/plan # gastroenteritis- Stool positive for Clostridium difficile Oral vancomycin DC IV antibiotics including metronidazole and ciprofloxacin # BRENNA-likely secondary vasomotor nephropathy IV fluids resuscitation Daily CMP to monitor Improving Hypomagnesemia, replace electrolytes # tobacco use disorder- I spent 12 minutes discussing smoking cessation with the patient on 01/24/2025 including the risk of continuing smoke: Lung cancer, stroke, heart attack, poor wound healing, increased in facial wrinkling, The expense of smoking cigarettes The patient has accepted a 21 mg nicotine patch. # methamphetamine inhalation use disorder Substance use navigator Rossy Mukherjee consult is ordered # sepsis-likely secondary to C difficile enterocolitis Blood cultures are negative x1 day Continue IV fluid resuscitation # DVT prophylaxis SCDs SQ Lovenox Sepsis Screening Reassessment Date: Jan 26, 2025 Date of Service: Jan 26, 2025 Billing Provider: FRANCES CARTER MD Common Visit Codes: [id number] INP/OBS CARE(HIGH) FRANCES CARTER MD Jan 26, 2025 17:22
[2025-01-27 05:34] LABS: MEAN PLATELET VOLUME 9.0 FL (7.4-10.4); RED CELL DISTRIBUTION WIDTH 13.6 % (11.5-14.5)
[2025-01-27 05:45] LABS: CREATININE 0.76 MG/DL (0.40-0.90); TOTAL CARBON DIOXIDE 28.0 MMOL/L (24-32); eCRCL 69 ML/MIN; eGFR 78 ML/MIN
[2025-01-27 06:00] VITALS: BP 134/74; PULSE 60; RESP 16; TEMP 98.7; O2SAT 98
[2025-01-27 06:16] LABS: LYMPHOCYTES % (MANUAL) 68.0 % (21-51); MONOCYTES % (MANUAL) 6.0 % (2-12); NEUTROPHILS % (MANUAL) 24.0 % (42-75); PLATELET ESTIMATE NORMAL; REACTIVE LYMPHOCYTES % 2.0 % (0-0)
[2025-01-27 06:17] LABS: ELLIPTOCYTES 1+
[2025-01-27 10:53] VITALS: BP 132/85; PULSE 59; RESP 17; TEMP 97.5; O2SAT 98
[2025-01-27 12:31] VITALS: PULSE 70; RESP 20; O2SAT 98
[2025-01-27 18:00] VITALS: BP 121/76; PULSE 75; RESP 15; TEMP 97.7; O2SAT 98
--- NOTE | 2025-01-27 19:46 | PROGRESS NOTE ---
Daily Progress Note Providers to CC As better today, better tolerate p.o. food and fluids less diarrhea ~ Central Line/PICC still needed: No Ba-Non Protocol Ba Indications Met/Not Met: F/C Indications Not Met Antibiotic Timeout Antibiotic Ordered?: Yes MRSA Education MRSA Education Provided to pt: Yes Subjective As above Objective Vital Signs Date Time Temp Pulse Resp B/P (MAP) Pulse Ox O2 Delivery O2 Flow Rate FiO2 01/27/25 12:31 70 20 98 Room Air* 0 21 01/27/25 10:53 97.5 132/85 (101) Vital signs, stable ,afebrile. Pulse Oximetry reflects adequate oxygenation. General: well developed, well nourished. Awake , alert, and oriented x4, resting comfortably in the bed, in no acute distress . Skin: Warm, dry, no pallor, no rash or petechiae. HEENT: Atraumatic, normocephalic, EOMI, anicteric sclera B; pink conjunctiva; PERRLA, normal oropharynx, moist oral and nasal mucosa. Tympanic membrane , nose , throat clear. Neck: Trachea midline. Supple, full range of motion, no JVD, bruit , hepatojugular reflex , lymphadenopathy or masses, or other lesions Cardiac: Regular rhythm, regular rate no murmurs, rubs, or gallops. Normal S1 and S2, no S3 noticed. PMI is normal. Respiratory: Equal breath sounds bilaterally, no tachypnea; lungs clear to auscultation bilaterally, no wheezing ,rub or rales, or crackles. Chest wall is symmetric and without deformity. No signs of trauma. Chest wall is nontender. No signs of respiratory distress. Resonance is normal upon percussion bilaterally. Gastrointestinal: Abdomen symmetric, non-distended, soft, non-tender, normal bowel sounds x4 quadrant, normoactive, no hepatosplenomegaly , no masses , no bruit, no flank pain bilaterally. No voluntary guarding, rebound, or rigidity. No tenderness to percussion. No pulsatile masses. Equal femoral pulses. No Perez's sign or McBurney point tenderness. Back; no CVA tenderness bilaterally, no deformities. Neck and back are without deformity as well. No tenderness noted on palpation of the spinous processes. Spinous processes are midline. Cervical, thoracic, and lumbar paraspinal muscles are not tender and are without spasm. Musculoskeletal: Extremities, normal range of motion, non-tender, muscle strength 5/5 x 4. Negative Homans signs bilaterally on lower extremity. Distal pulses full symmetrical, no clubbing, cyanosis , edema. Neurological: Speech is clear, alert, and oriented x 4. No motor or sensory deficit, deep tendon reflexes normal, cerebellar intact. Cranial nerves II-XII intact. Psych: Alert and or appropriate, normal affect. Vascular: Good distal pulses, which are equal x4; capillary refill less than 2 seconds. Lymphatic, no lymphadenopathy. Result Diagram: 01/27/2545401/27/[id number] Problem\Assessment\Plan Problems/Diagnosis: (1) Acute kidney injury Assessment/plan # gastroenteritis- Stool positive for Clostridium difficile Oral vancomycin DC IV antibiotics including metronidazole and ciprofloxacin # BRENAN-likely secondary vasomotor nephropathy IV fluids resuscitation Daily CMP to monitor Improving Hypomagnesemia, replace electrolytes # tobacco use disorder- I spent 12 minutes discussing smoking cessation with the patient on 01/24/2025 including the risk of continuing smoke: Lung cancer, stroke, heart attack, poor wound healing, increased in facial wrinkling, The expense of smoking cigarettes The patient has accepted a 21 mg nicotine patch. # methamphetamine inhalation use disorder Substance use navigator Rossy Mukherjee consult is ordered # sepsis-likely secondary to C difficile enterocolitis Blood cultures are negative x1 day Continue IV fluid resuscitation # DVT prophylaxis SCDs SQ Lovenox Sepsis Screening Reassessment Date: Jan 27, 2025 Date of Service: Jan 27, 2025 Billing Provider: FRANCES CARTER MD Common Visit Codes: [id number] INP/OBS CARE(HIGH) FRANCES CARTER MD Jan 27, 2025 19:46
[2025-01-27 20:00] VITALS: RESP 15; O2SAT 98
[2025-01-27 22:00] VITALS: BP 118/74; PULSE 60; RESP 14; TEMP 98.4; O2SAT 98
[2025-01-28 05:00] VITALS: BP 149/96; PULSE 92; RESP 24; TEMP 97.7; O2SAT 100
[2025-01-28 06:02] LABS: MEAN PLATELET VOLUME 9.5 FL (7.4-10.4); RED CELL DISTRIBUTION WIDTH 13.7 % (11.5-14.5)
[2025-01-28 06:22] LABS: CREATININE 0.79 MG/DL (0.40-0.90); TOTAL CARBON DIOXIDE 28.5 MMOL/L (24-32); eCRCL 66 ML/MIN; eGFR 74 ML/MIN
[2025-01-28 07:30] VITALS: RESP 16; O2SAT 100
[2025-01-28 10:14] VITALS: PULSE 70; RESP 20; O2SAT 98
[2025-01-28 11:05] VITALS: BP 118/68; PULSE 95; RESP 16; TEMP 97.6; O2SAT 98
[2025-01-28] MEDS ORDERED: VANC125C11 PO (13:18)
--- NOTE | 2025-01-28 17:07 | DISCHARGE SUMMARY ---
Discharge Summary Providers to No new complaint today asking to be discharged home ~ Discharge Summary Assessment Acute C diff gastroenteritis Tobacco use disorder Methamphetamine use disorder Acute kidney injury secondary to vasomotor nephropathy Sepsis Admission Diagnosis: Sepsis/gastroenteritis Admission Diagnosis Comment: Acute C diff gastroenteritis Tobacco use disorder Methamphetamine use disorder Acute kidney injury secondary to vasomotor nephropathy Sepsis Hospital Course DATE OF ADMISSION: January 23, 2025 DATE OF DISCHARGE: January 28, 2025 Discharge Diagnosis\Comment: Acute C diff gastroenteritis Tobacco use disorder Methamphetamine use disorder Acute kidney injury secondary to vasomotor nephropathy Sepsis Operations\Procedures: Non Consultants: Non Complications: Non Condition on DC: Stable Discharge Summary: This is a 59-year-old female who presents to the ED with intractable nausea and vomiting and diarrhea x3 days the patient also has had purulent valerio urine for this timeframe her the patient also has not been able to either drink any fluids. The patient is does endorse chills as well. The patient denies abdominal pain the patient also complained of right sided chest discomfort with a ball in her chest chest x-ray was obtained which was unremarkable. A CT scan of the abdomen and pelvis demonstrated an ileus. Initially rectal tube was placed in the ED however the patient can not tolerate this and she self removed the rectal tube. The patient has a normal baseline creatinine and her creatinine today is 2.0 that is the patient has a acute kidney injury IV fluids are being administered. I started the patient on Cipro IV and Flagyl IV antibiotic coverage of the possible bacterial gastroenteritis, admission patient was extensively evaluated and treated today she has no complaint good appetite good sleep asking to be discharged home, she will be discharged home in stable condition, medication reconciled, follow-up PCP GI doctor in the morning, today on physical exam Vital signs, stable ,afebrile. Pulse Oximetry reflects adequate oxygenation. General: well developed, well nourished. Awake , alert, and oriented x4, resting comfortably in the bed, in no acute distress . Skin: Warm, dry, no pallor, no rash or petechiae. HEENT: Atraumatic, normocephalic, EOMI, anicteric sclera B; pink conjunctiva; PERRLA, normal oropharynx, moist oral and nasal mucosa. Tympanic membrane , nose , throat clear. Neck: Trachea midline. Supple, full range of motion, no JVD, bruit , hepatojugular reflex , lymphadenopathy or masses, or other lesions Cardiac: Regular rhythm, regular rate no murmurs, rubs, or gallops. Normal S1 and S2, no S3 noticed. PMI is normal. Respiratory: Equal breath sounds bilaterally, no tachypnea; lungs clear to auscultation bilaterally, no wheezing ,rub or rales, or crackles. Chest wall is symmetric and without deformity. No signs of trauma. Chest wall is nontender. No signs of respiratory distress. Resonance is normal upon percussion bilaterally. Gastrointestinal: Abdomen symmetric, non-distended, soft, non-tender, normal bowel sounds x4 quadrant, normoactive, no hepatosplenomegaly , no masses , no bruit, no flank pain bilaterally. No voluntary guarding, rebound, or rigidity. No tenderness to percussion. No pulsatile masses. Equal femoral pulses. No Perez's sign or McBurney point tenderness. Back; no CVA tenderness bilaterally, no deformities. Neck and back are without deformity as well. No tenderness noted on palpation of the spinous processes. Spinous processes are midline. Cervical, thoracic, and lumbar paraspinal muscles are not tender and are without spasm. Musculoskeletal: Extremities, normal range of motion, non-tender, muscle strength 5/5 x 4. Negative Homans signs bilaterally on lower extremity. Distal pulses full symmetrical, no clubbing, cyanosis , edema. Neurological: Speech is clear, alert, and oriented x 4. No motor or sensory def icit, deep tendon reflexes normal, cerebellar intact. Cranial nerves II-XII intact. Psych: Alert and or appropriate, normal affect. Vascular: Good distal pulses, which are equal x4; capillary refill less than 2 seconds. Lymphatic, no lymphadenopathy. *Problems/Diagnosis: (1) Acute kidney injury Status: Acute Total Time Spent on D/C: > 30 Minutes Date of Service: Jan 28, 2025 Billing Provider: FRANCES CARTER MD Common Visit Codes: [id number] DISCH DAY >30min FRANCES CARTER MD Jan 28, 2025 17:07
== END 2025-01-28 14:12 | disposition home or self-care (01) | DRG 871 ==
LOC: ER 06:27 → ED HOLD 12:17 → EDBEDREQSVC 13:03 → EDBEDREQ 13:03 → SUR 3N 15:00
PROVIDERS: ADMIT Family Medicine; ATTEND Family Medicine
PROC: BW211ZZ Computerized Tomography (CT Scan) of Abdomen and Pelvis using Low Osmolar Contrast (ICD-10-PCS; principal; 2025-01-23)
DX: A41.9 Sepsis, unspecified organism (principal); N17.0 Acute kidney failure with tubular necrosis; A04.72 Enterocolitis due to Clostridium difficile, not specified as recurrent; E87.1 Hypo-osmolality and hyponatremia; E87.20 Acidosis, unspecified; K56.7 Ileus, unspecified; E83.42 Hypomagnesemia; E87.6 Hypokalemia; F31.9 Bipolar disorder, unspecified; Z66 Do not resuscitate; F17.210 Nicotine dependence, cigarettes, uncomplicated; F15.90 Other stimulant use, unspecified, uncomplicated; F41.9 Anxiety disorder, unspecified; Z79.899 Other long term (current) drug therapy; Z80.8 Family history of malignant neoplasm of other organs or systems; Z82.3 Family history of stroke; Z82.49 Family history of ischemic heart disease and other diseases of the circulatory system; Z83.3 Family history of diabetes mellitus
CPT/HCPCS: 36415; 71045; 74177; 80053; 81001; 83605; 83690; 83735; 84100; 84484; 85007; 85025; 85651; 86140; 87040; 87045; 87046; 87081; 87324; 87449; 89055; 93005; 94760; 96365; 97116; 97161; 97530; 99285; C1758; G0378; J0696; J0744; J1650; J2405; J3490; J7030; J7050; Q9967